=== PATIENT | male | born 1950 | race Caucasian/White ===

== ENCOUNTER 2022-07-12 09:31 | Day surgery (SDC) | payer OTHER ==
[2022-07-12] VITALS (24 sets, daily range): BP systolic 125–215; BP diastolic 70–145
[~2022-07-12] VITALS: Ht 177.8 cm; Wt 74.8 kg
[~2022-07-12 09:31] MED LIST: BUDESONIDE PO; cefazolin 2gm/D5W 100mL 100 ML IV ONE; famotidine 20mg tablet PO ONE; ringers solution, lacted 1,000 ML IV SCH
[2022-07-12 10:40] LABS: BASOPHILS # (AUTO) 0.1 X10'3 (0-0.2); BASOPHILS % (AUTO) 0.5 % (0-1); EOSINOPHILS # (AUTO) 0.1 X10'3 (0-0.9); EOSINOPHILS % (AUTO) 0.5 % (0-6); HEMATOCRIT 53.5 % (42.0-52.0); LYMPHOCYTES # (AUTO) 2.8 X10'3 (1.1-4.8); LYMPHOCYTES % (AUTO) 28.4 % (21-51); MEAN CORPUSCULAR HEMOGLOBIN 33.5 PG (27.0-31.0); MEAN CORPUSCULAR HGB CONC 34.2 g/dL (33.0-36.5); MEAN PLATELET VOLUME 7.7 FL (7.4-10.4); MONOCYTES # (AUTO) 0.8 X10'3 (0-0.9); MONOCYTES % (AUTO) 8.3 % (2-12); NEUTROPHILS # (AUTO) 6.2 X10'3 (1.8-7.7); NEUTROPHILS % (AUTO) 62.3 % (42-75); PLATELET COUNT 224 X10'3 (140-440); RED BLOOD COUNT 5.46 X10'6 (4.70-6.10); RED CELL DISTRIBUTION WIDTH 14.2 % (11.5-14.5)
[2022-07-12 10:43] LABS: HEMOGLOBIN 18.3 g/dl (14.0-17.9)
[2022-07-12 10:55] LABS: ALANINE AMINOTRANSFERASE 23 U/L (12-78); ALBUMIN 3.9 G/DL (3.4-5.0); ALBUMIN/GLOBULIN RATIO 1.3 (1.1-1.5); ALKALINE PHOSPHATASE 62 IU/L (46-116); ANION GAP 9 (8-16); ASPARTATE AMINO TRANSFERASE 19 U/L (10-37); BLOOD UREA NITROGEN 14 MG/DL (7-18); BUN/CREATININE RATIO 14.9 (5.4-32.0); CALCIUM 9.3 MG/DL (8.5-10.1); CHLORIDE 109 MMOL/L (99-107); CREATININE 0.94 MG/DL (0.60-1.10); GLUCOSE 102 MG/DL (70-104); POTASSIUM 4.3 MMOL/L (3.5-5.1); SODIUM 143 MMOL/L (135-145); eGFR 79 ML/MIN
[2022-07-12] MEDS ORDERED: hydrALAZINE 20mg/ml inj. IV PRN (11:15)
[2022-07-12] MEDS ORDERED: acetaminophen 1,000mg/100ml IV 100 ML IV PRN (11:15)
[2022-07-12] MEDS ORDERED: ondansetron/PF 4mg/2ml inj IV PRN (11:15)
[2022-07-12] MEDS ORDERED: proCHLORperazine 10 MG/2 ml inj IV PRN (11:15)
[2022-07-12] MEDS ORDERED: morphine 2 MG/ML inj. syringe IV PRN (11:15)
[2022-07-12] MEDS ORDERED: meperidine/PF 25mg/ml syringe IV PRN ×2 (11:15)
[2022-07-12] MEDS ORDERED: ringers solution, lacted 1,000 ML IV SCH (11:15)
[2022-07-12] MEDS ORDERED: BUPIVAcaine/PF 2.5 mg/ml (0.25%) 30ml vial ONE (13:43)
[2022-07-12] MEDS ORDERED: LIDOcaine 1% 30ml preserv. free vial ONE (13:43)
[2022-07-12] MEDS ORDERED: sevoflurane 250ml liquid IH ONE (13:47)
[2022-07-12] MEDS ORDERED: midazolam 1 mg/ML 2ml injection ONE (13:57)
[2022-07-12] MEDS ORDERED: fentaNYL /PF 50mcg/ml 5ml ampule ONE (14:03)
[2022-07-12] MEDS ORDERED: BUPIVAcaine/PF 2.5 mg/ml (0.25%) 30ml vial IJ ONE (14:11)
[2022-07-12] MEDS ORDERED: propofol inj 20 ML IV ONE (14:11)
[2022-07-12] MEDS ORDERED: rocuronium 10mg/ml inj IV ONE (14:11)
[2022-07-12] MEDS ORDERED: LIDOcaine 2% (20mg/ml) 5ml vial ONE (14:11)
[2022-07-12] MEDS ORDERED: ondansetron/PF 4mg/2ml inj ONE (14:14)
[2022-07-12] MEDS ORDERED: dexamethasone sod phosphate 4mg/ml inj. ONE (14:14)
[2022-07-12] MEDS ORDERED: LIDOcaine 1% 30ml preserv. free vial IJ ONE (14:16)
[2022-07-12] MEDS ORDERED: neostigmine methylsulfate 1 MG/ML 10ml vial ONE (15:06)
[2022-07-12] MEDS ORDERED: glycopyrrolate 0.2mg/ml inj ONE (15:06)
[2022-07-12] MEDS ORDERED: HYDROcodone/acetaminophen 5mg/325mg tablet PO PRN (15:15)
--- NOTE | 2022-07-12 15:20 | NUR ---
Received from OR via [facility], accompanied by Anesthesiologist and report given by [facility] Anesthesiologist. PATIENT WAKING UP, DENIES PAIN, V/S WNL, PIV 20G RIGHT AC, BANDAIDS LAPS SITES CLOSED C/D/I TO ABDOMEN. Addendum: 07/12/22 at 1612 by Salazar Velez RN Amended: Links added.
[2022-07-12] MEDS: meperidine/PF 25mg/ml syringe IV PRN ×2 (15:30→16:30)
[2022-07-12] MEDS: labetalol 20mg/4ml (5mg/ml) syringe IV PRN ×2 (15:40→15:51)
[2022-07-12] MEDS: morphine 4 MG/ML inj SYRINge IV PRN ×2 (16:00→16:52)
--- NOTE | 2022-07-12 17:30 | NUR ---
PERFORMED URINARY BLADDER AND NO URINE NOTED. ENCOURAGE PATIENT TO DRINK MORE FLUID.
--- NOTE | 2022-07-12 18:15 | NUR ---
PERFORMED URINARY BLADDER AND 18 CC OF URINE NOTED. ENCOURAGE TO DRINK MORE FLUID.
--- NOTE | 2022-07-12 18:45 | NUR ---
EXPLAIN PATIENT THE RISK AND BENEFIT OF USING KEYS CATHETER. PATIENT WANTED TO TRY TO URINATE AT THIS TIME.
[2022-07-12] MEDS ORDERED: LIDOcaine 2% 10ml TOPICAL JELLY (Urojet) TP ONE (18:50)
[2022-07-12] MEDS ORDERED: LIDOcaine 2% jelly 6ml syringe ***for topical use only TOP ONE (19:05)
--- NOTE | 2022-07-12 19:20 | NUR ---
KEYS CATHETER PLACED PER PROTOCOL WITH NO COMPLICATIONS DUE TO PATIENT BEING UNABLE TO VOID AND OVER 100 CC IN BLADDER SCAN. GOOD OUTPUT OF 200 CC OF URINE FROM KEYS CATHETER WITH CLEAR YELLOW URINE. I HAVE DEMONSTRATED KEYS CATHETER CARE AND PATIENT HAS VERBALIZED UNDERSTANDING ON HOME CARE. EDUCATION PACKET GIVEN TO PATIENT WELL FOR KEYS CATHETER MANAGEMENT FOR HOME. PATIENT AGREES HE WILL DISCONTINUE KEYS CATHETER AT HOME ON SATURDAY MORNING PER DR. CARNES'S INSTRUCTION PRIOR TO DISCHARGE. Addendum: 07/12/22 at 1945 by Salazar Velez RN Amended: Links added.
== END 2022-07-12 19:20 | disposition home or self-care (01) ==
LOC: PRE-OP 09:31 → OR 19:20
PROVIDERS: ATTEND Surgery
DX: K40.20 Bilateral inguinal hernia, without obstruction or gangrene, not specified as recurrent (principal); F17.210 Nicotine dependence, cigarettes, uncomplicated; G89.29 Other chronic pain; Z98.890 Other specified postprocedural states; Z98.1 Arthrodesis status; Z79.899 Other long term (current) drug therapy
CPT/HCPCS: 36415; 49650; 80053; 82948; 85025; 93005; C1781; J0131; J0360; J0690; J1100; J2175; J2250; J2270; J2405; J2704; J2710; J3010; J3490; J7030; J7120; Z7506; Z7508; Z7512; A4215; A4618